=== PATIENT | female | born 1995 | race Caucasian/White ===

== ENCOUNTER 2019-02-06 20:07 | Emergency (ER) | payer OTHER | END 2019-02-06 21:08 | disposition home or self-care (01) | LOC: JER 20:07 ==

== ENCOUNTER 2020-01-17 05:05 | Day surgery (SDC) | payer OTHER ==
--- NOTE | 2020-01-13 14:33 | HP ---
Satellite H - Chief Complaint Chief Complaint: right wrist mass Satellite Physical Exam - Physical Examination General Appearance: Well Nourished, Well Developed, Alert & Oriented x3 ENT: Clear Lung: Normal air movement Extremities: Other (right wrist/hand- + mass, + ttp, nvi) Neurological: Intact, Alert, Oriented Satellite Impression/Plan - Impression/Plan Impression: right wrist ganglion cyst Operative Procedure: right wrist ganglion cyst excision Date to be Performed: 01/13/20
[2020-01-13 15:59] VITALS: BMI 31.9
[2020-01-17] MEDS ORDERED: LIDOCAINE HCL 1%, 10 MG/ML (20ML VIAL) ONE (10:51)
[2020-01-17] MEDS ORDERED: MIDAZOLAM HCL 2 MG/2 ML SINGLE DOSE VIAL ONE (10:58)
[2020-01-17] MEDS ORDERED: PROPOFOL 20 ML ONE (10:59)
[2020-01-17] MEDS ORDERED: ceFAZolin SODIUM 1 GM VIAL IVPB ONE (11:10)
[2020-01-17] MEDS ORDERED: LIDOCAINE HCL 1%, 10 MG/ML (20ML VIAL) NR ONE ×3 (11:11)
[2020-01-17] MEDS ORDERED: BUPIVACAINE HCL/PF 0.5% (5 MG/ML) 30 ML VIAL IJ ONE ×3 (11:11)
--- NOTE | 2020-01-17 11:51 | OP ---
Operative Note - Note: Operative Date: 01/17/20 Pre-Operative Diagnosis: right wrist masses, likely ganglion cysts Operation: excision masses (2)/genglion cysts right wrist Post-Operative Diagnosis: Same as Pre-op Surgeon: Abhi Hou Anesthesiologist/FURNITURE CRATER: Jose David Anesthesia: Local, MAC Specimens Removed: masses (2) right wrist, likely ganglion cysts Estimated Blood Loss (mls): 0 Drains, Volume Out (mls): 0 Blood Volume Replaced (mls): 0 Fluid Volume Replaced (mls): 700 Operative Report Dictated: Yes
[2020-01-17 12:19] VITALS: PULSE 70
[2020-01-17 15:03] VITALS: BP 138/88; TEMP 98
--- NOTE | 2020-01-17 18:37 | OP ---
DATE OF OPERATION: 01/17/2020 PREOPERATIVE DIAGNOSIS: Right wrist ganglion cysts. POSTOPERATIVE DIAGNOSIS: Right wrist ganglion cysts. PROCEDURE: Excision masses/ganglion cysts, right wrist. SURGEON: Alexei Wang MD PARACHUTE INSPECTOR: Wilfredo Vera MD ANESTHESIOLOGIST: Dave David MD ANESTHESIA: MAC anesthesia with local injection of 12 mL 0.5% Marcaine, 1% lidocaine mixed. DRAINS: None. COMPLICATIONS: None. BLOOD LOSS: None. BLOOD GIVEN: None. FLUID REPLACEMENT: Plasmalyte 700 mL. SPECIMENS: Masses/ganglion cysts, right wrist. INDICATIONS: This patient is a 24-year-old female with 2 masses on the dorsal aspect of her right wrist, likely ganglion cysts. After understanding the potential risks, complications, alternatives, and benefits of surgery versus nonsurgical treatment, the patient elected to undergo this procedure. The patient understands that these masses may grow back at this or other locations. She also understands she will have 1 or 2 scars on the dorsal aspect of the right wrist. Patient was brought to the operating room, peripheral IV placed, IV sedation given. IV Ancef, 2 g, was given. MAC anesthesia was induced. The entire case was done under 3.8 loupe magnification. Right upper extremity was then prepped and draped in sterile fashion, elevated, exsanguinated with an Esmarch bandage and the tourniquet inflated to 250 mmHg. Two transverse incisions within Elizabet's lines were marked out with marking pen. Each was about 1 inch in length, but the skin bridge was kept between the 2 for neurovascular reasons. Next, 16 mL 0.5% Marcaine, 1% lidocaine mixed was injected in the surgical incisions. The more ulnar incision was made first as this was the larger of the 2 ganglion cysts. I cut down through the skin, subcutaneous. Hemostasis was achieved with the bipolar cautery. Dissection done with Littler scissors, and then a curved iris scissors, identifying an obvious mass deep to the extensor retinaculum. Small window was made in the extensor retinaculum, after which a large ganglion cyst was exposed. Circumferential dissection was done after putting the Weitlaner retractors into the wound, retracting the extensor tendons in a radial and ulnar direction. This was a very large multiloculated ganglion cyst. At one point it popped during the case, and classic ganglion cyst-like fluid was expressed. It actually kept coming out much more so than would be expected, and in fact, I think this decompressed the more radial of the 2 ganglion cysts. I was able to pull the ganglion cyst out through the more ulnar wound, find its stalk and decapitate it at its base. It was connecting to the dorsal wrist capsule. A small window was made and cauterized. The specimen was passed off the field; mass/ganglion cyst, right wrist. The area was copiously irrigated and washed out. I did not see any other abnormal tissue or gel. Next, our attention turned to the more radial of the more radial of the 2 locations that did have a dissect ganglion cyst underneath it. Prior to the case, it felt like there was still some swelling. The incision was made with a No. 15 scalpel blade. Subcutaneous hemostasis was achieved with the bipolar cautery. Dissection again done with the Littler scissors. Here, there was some adipose tissue and dorsal extensor tenosynovitis which was removed and passed off the field to include as specimen. However, there was no other dissect ganglion cyst. As mentioned, I believe it was decompressed from the other incision. Still, I explored the area to make sure I was not missing anything. I did not see any other abnormal ganglion cyst tissue or gel. The area was copiously irrigated and washed out, as was the other incision again. Both incisions were closed with 4-0 undyed Vicryl in the deep dermal layer, then final skin reapproximation with a running subcuticular 4-0 Biosyn stitch. The area was then washed and dried, covered with Steri-Strips, 4 x 4's, fluffs in the 1st web space, and then wrapped with Webril and Coban. Tourniquet was taken down after a total tourniquet time of 24 minutes. There were no complications during the case. The patient tolerated the procedure quite well and was brought to the ambulatory recovery room in stable condition. WILFREDO VERA M.D. [id number]
--- NOTE | 2020-01-18 13:47 | PATH ---
Surgical Pathology Report Patient Name: SAMI DARLING Med. Rec. #: [id number] /Age/Gender: 1995 (Age: 24) / F Account: [id number] Location: [facility] Taken: 01/17/2020 Received: 01/17/2020 Reported: 01/18/2020 Physicians: Chanel East M.D. Specimen(s) Received RIGHT WRIST MASSES Clinical History Right wrist masses Final Diagnosis RIGHT WRIST MASSES, EXCISION: CONSISTENT WITH GANGLION CYST. Electronically Signed Stephanie Bustos M.D. Gross Description Received in formalin labeled "right wrist masses," are 4 chaudhry-yellow soft tissue fragments ranging from 0.7 x 0.4 x 0.3 cm to 2.8 x 1.1 x 0.7 cm. [employer] sections are submitted in 2 cassettes as follows: 1-entirely submitted three smaller pieces; 2-fundraising sale representative largest piece. /[facility]
== END 2020-01-17 14:45 | disposition home or self-care (01) ==
LOC: JASU-SURG 05:05
PROVIDERS: ATTEND Orthopaedic Surgery
PROC: 0LB50ZZ Excision of Right Lower Arm and Wrist Tendon, Open Approach (ICD-10-PCS; principal; 2020-01-17 10:00)
DX: M67.431 Ganglion, right wrist (principal)
CPT/HCPCS: 36415; 84703; 88304-TC